=== PATIENT | female | born 1935 | race Asian ===

== ENCOUNTER 2016-12-08 21:17 | Emergency (ER) | payer MEDICARE, OTHER ==
[2016-12-08 21:36] VITALS: BP 175/61
[2016-12-08] MEDS ORDERED: TETANUS/DIPHTHERIA/PERTUSSIS 0.5 ML SYRINGE IM ONE ×2 (21:42→21:47)
--- NOTE | 2016-12-08 21:45 | ED Physician Documentation ---
History of Present Illness - Stated complaint Stated Complaint: R HAND SWOLLEN/PX - Chief complaint Chief Complaint: Needlestick - History obtained from History obtained from: Patient, Family - History of Present Illness Timing: Today Pain level max: 0 Pain level now: 0 Improved by: nothing Worsened by: nothing - Additonal information Additional information: L thumb stick by blow dart. Accidental while cleaning her car. It was her son's dart. Unknown last tetanus. Not on blood thinners. Unknown tetanus Review of Systems Neurologic: denies: Focal weakness, Numbness PD PAST MEDICAL HISTORY - Past Medical History Cardiovascular: Hypertension, High cholesterol Respiratory: None Endocrine/Autoimmune: None GI: GERD, Hepatitis : None HEENT: Other Psych: None Musculoskeletal: None Derm: None - Past Surgical History Past Surgical History: Yes HEENT: Cataracts - Present Medications Home Medications: Ambulatory Orders Medication Instructions Recorded Confirmed Aspirin [Aspir-Low] 81 mg PO DAILY 09/25/15 09/25/15 Cholecalciferol [Vitamin D3] 5,000 unit ORAL DAILY 09/25/15 09/25/15 Hydrochlorothiazide 25 mg PO DAILY 09/25/15 09/25/15 Losartan Potassium 100 mg PO DAILY 09/25/15 09/25/15 Omeprazole [PriLOSEC] 20 mg PO DAILY 09/25/15 09/25/15 Simvastatin 20 mg PO DAILY 09/25/15 09/25/15 - Allergies Allergies/Adverse Reactions: Allergies Allergy/AdvReac Type Severity Reaction Status Date / Time No Known Drug Allergies Allergy Verified 09/25/15 07:20 - Social History Does the pt smoke?: Yes Smoking Status: Current every day smoker Does the pt drink ETOH?: No - Immunizations Immunizations are current?: No Immunizations: TDAP >10years/unknown PD ED PE NORMAL - Vitals Vital signs reviewed: Yes - General General: Alert and oriented X 3, No acute distress - Neck Neck: Supple, no meningeal sign - Cardiac Cardiac: RRR - Respiratory Respiratory: No respiratory distress, Clear bilaterally - Extremities Extremities: Other (L hand - small puncture wound webspace medial aspect of thumb. NVI. no tendon injury) - Neuro Neuro: Alert and oriented X 3 - Psych Psych: Normal mood, Normal affect Results - Vitals Vitals: Vital Signs - 24 hr 12/08/16 21:31 Temperature 36.9 C Heart Rate 67 Respiratory 16 Rate Blood Pressure 175/61 H O2 Saturation 98 Oxygen O2 Source Room air PD MEDICAL DECISION MAKING - ED course Complexity details: considered differential, d/w patient, d/w family ED course: Patient with a puncture wound to the Warnings of infection and instructions on wound care given at bedside. Also counseled on how to minimize scarring. Patient counseled regarding signs and symptoms for which I believe and urgent re -evaluation would be necessary. Patient with good understanding of and agreement to plan and is comfortable going home at this time This document was made in part using voice recognition software. While efforts are made to proofread this document, sound alike and grammatical errors may occur. Departure - Departure Disposition: 01 Home, Self Care Clinical Impression: Needle stick injury Qualifiers: Encounter type: initial encounter Qualified Code(s): W27.3XXA - Contact with needle (sewing), initial encounter Condition: Good Instructions: ED Wound Care Follow-Up: Rafael Jewell MD [Primary Care Provider] - Within 1 week Comments: Return if you worsen or notice redness, swelling, or drainage from the site. These normally heal well. Discharge Date/Time: 12/08/16 22:03
== END 2016-12-08 22:03 | disposition home or self-care (01) ==
LOC: ED 21:17
DX: S61.032A Puncture wound without foreign body of left thumb without damage to nail, initial encounter (principal); W45.8XXA Other foreign body or object entering through skin, initial encounter; Y93.89 Activity, other specified; I10 Essential (primary) hypertension; F17.200 Nicotine dependence, unspecified, uncomplicated; Z79.82 Long term (current) use of aspirin
CPT/HCPCS: 90471; 96372; 99283

== ENCOUNTER 2018-01-17 08:00 | Outpatient (CLI) | payer MEDICARE, OTHER ==
[2018-01-17 13:28] LABS: BASOPHILS # (AUTO) 0.1 10^3/uL (0.0-0.1); BASOPHILS % (AUTO) 1.3 %; EOSINOPHILS # (AUTO) 0.4 10^3/uL (0.0-0.7); EOSINOPHILS % (AUTO) 6.5 %; HGB - HEMOGLOBIN 11.9 g/dL (12.0-16.0); LYMPHOCYTES # (AUTO) 1.9 10^3/uL (1.5-3.5); LYMPHOCYTES % (AUTO) 29.2 %; MEAN CORPUSCULAR HEMOGLOBIN 24.1 pg (27.0-31.0); MEAN CORPUSCULAR HGB CONC 33.1 g/dL (32.0-36.0); MEAN PLATELET VOLUME 7.7 fL (7.9-10.8); MONOCYTES # (AUTO) 0.5 10^3/uL (0.0-1.0); MONOCYTES % (AUTO) 8.1 %; NEUTROPHILS # (AUTO) 3.5 10^3/uL (1.5-6.6); NEUTROPHILS % (AUTO) 54.9 %; PLT - PLATELET COUNT 256 10^3/uL (130-450); RED BLOOD COUNT 4.92 10^6/uL (4.20-5.40); RED CELL DISTRIBUTION WIDTH 14.2 % (12.0-15.0); WHITE BLOOD COUNT 6.4 x10^3/uL (4.8-10.8)
[2018-01-17 14:07] LABS: THYROID STIMULATING HORMONE 1.83 uIU/mL (0.34-5.60)
[2018-01-17 14:10] LABS: FERRITIN 119.7 ng/mL (11.0-306.8)
[2018-01-17 14:14] LABS: % IRON SATURATION 36 % (20-50); ALBUMIN 3.8 g/dL (3.2-5.5); ALBUMIN/GLOBULIN RATIO 1.1 (1.0-2.2); ALKALINE PHOSPHATASE 91 IU/L (42-121); ALT ALANINE AMINOTRANSFERASE 11 IU/L (10-60); AST ASPARTATE AMINOTRANSFERASE 21 IU/L (10-42); BILIRUBIN,TOTAL 1.3 mg/dL (0.2-1.0); BUN - BLOOD UREA NITROGEN 20 mg/dL (6-20); CALCIUM 9.4 mg/dL (8.5-10.3); CARBON DIOXIDE - CO2 27 mmol/L (21-32); CHLORIDE 103 mmol/L (101-111); CHOL/HDL RATIO 3.8 (<4.4); CHOLESTEROL 248 mg/dL; CREATININE 1.2 mg/dL (0.4-1.0); GFR - MDRD 43 (>89); GLUCOSE 100 mg/dL (70-100); HDL CHOLESTEROL 65 mg/dL; IRON 115 ug/dL (28-170); LDL CHOLESTEROL,CALCULATED 143 mg/dL; LDL/HDL RATIO 2.2 (<4.4); SODIUM 139 mmol/L (135-145); TOTAL IRON BINDING CAPACITY 316 ug/dL (250-450); TOTAL PROTEIN 7.2 g/dL (6.7-8.2); TRANSFERRIN 226 mg/dL (192-382); VLDL CHOLESTEROL 40 mg/dL
== END 2018-01-17 08:01 | disposition home or self-care (01) ==
LOC: LAB.WCP 08:00
PROVIDERS: ATTEND Family Medicine
DX: D64.9 Anemia, unspecified (principal); E78.5 Hyperlipidemia, unspecified; J44.9 Chronic obstructive pulmonary disease, unspecified; R16.0 Hepatomegaly, not elsewhere classified; E87.6 Hypokalemia; I10 Essential (primary) hypertension; R73.02 Impaired glucose tolerance (oral)
CPT/HCPCS: 36415; 80053; 80061; 82728; 83540; 83721; 84443; 84466; 85025

== ENCOUNTER 2018-05-11 08:00 | Outpatient (CLI) | payer MEDICARE, OTHER ==
[2018-05-11 19:29] LABS: BASOPHILS # (AUTO) 0.1 10^3/uL (0.0-0.1); BASOPHILS % (AUTO) 1.4 %; EOSINOPHILS # (AUTO) 0.4 10^3/uL (0.0-0.7); EOSINOPHILS % (AUTO) 7.7 %; HGB - HEMOGLOBIN 11.8 g/dL (12.0-16.0); LYMPHOCYTES # (AUTO) 1.5 10^3/uL (1.5-3.5); LYMPHOCYTES % (AUTO) 27.2 %; MEAN CORPUSCULAR HEMOGLOBIN 24.8 pg (27.0-31.0); MEAN CORPUSCULAR HGB CONC 32.9 g/dL (32.0-36.0); MEAN CORPUSCULAR VOLUME 75.5 fL (81.0-99.0); MEAN PLATELET VOLUME 7.4 fL (7.9-10.8); MONOCYTES # (AUTO) 0.5 10^3/uL (0.0-1.0); MONOCYTES % (AUTO) 8.6 %; NEUTROPHILS # (AUTO) 3.1 10^3/uL (1.5-6.6); NEUTROPHILS % (AUTO) 55.1 %; PLT - PLATELET COUNT 324 10^3/uL (130-450); RED BLOOD COUNT 4.74 10^6/uL (4.20-5.40); RED CELL DISTRIBUTION WIDTH 14.2 % (12.0-15.0); WHITE BLOOD COUNT 5.7 x10^3/uL (4.8-10.8)
[2018-05-11 19:32] LABS: ALBUMIN 3.9 g/dL (3.2-5.5); ALBUMIN/GLOBULIN RATIO 1.1 (1.0-2.2); ALKALINE PHOSPHATASE 101 IU/L (42-121); ALT ALANINE AMINOTRANSFERASE 13 IU/L (10-60); AMYLASE 96 U/L (28-100); AST ASPARTATE AMINOTRANSFERASE 23 IU/L (10-42); BILIRUBIN,TOTAL 0.9 mg/dL (0.2-1.0); BUN - BLOOD UREA NITROGEN 22 mg/dL (6-20); CALCIUM 9.5 mg/dL (8.5-10.3); CARBON DIOXIDE - CO2 28 mmol/L (21-32); CHLORIDE 104 mmol/L (101-111); CREATININE 1.3 mg/dL (0.4-1.0); GFR - MDRD 39 (>89); GLUCOSE 89 mg/dL (70-100); LIPASE 36 U/L (22-51); SODIUM 140 mmol/L (135-145); TOTAL PROTEIN 7.5 g/dL (6.7-8.2)
== END 2018-05-11 23:59 | disposition home or self-care (01) ==
LOC: LAB.WCP 08:00
PROVIDERS: ATTEND Family Medicine
DX: D64.9 Anemia, unspecified (principal); R42 Dizziness and giddiness; R10.13 Epigastric pain
CPT/HCPCS: 36415; 80053; 82150; 83690; 84443; 85025

== ENCOUNTER 2020-01-07 14:03 | Outpatient (CLI) | payer MEDICARE, OTHER ==
[2020-01-07 18:14] LABS: CALCIUM 8.9 mg/dL (8.5-10.3); CREATININE 0.9 mg/dL (0.4-1.0)
== END 2020-01-07 23:59 | disposition home or self-care (01) ==
LOC: LAB.WCP 14:03
PROVIDERS: ATTEND Family Medicine
DX: I10 Essential (primary) hypertension (principal)
CPT/HCPCS: 36415; 80048

== ENCOUNTER 2020-06-18 11:39 | Outpatient (CLI) | payer MEDICARE, OTHER | END 2020-06-18 23:59 | disposition home or self-care (01) | LOC: LAB.WCP 11:39 | PROVIDERS: ATTEND Family Medicine | DX: D50.9 Iron deficiency anemia, unspecified (principal) | CPT/HCPCS: 82274 ==

== ENCOUNTER 2020-07-27 15:27 | Outpatient (CLI) | payer MEDICARE, OTHER | END 2020-07-27 15:28 | disposition critical access hospital (66) | LOC: EMS 15:27 | PROVIDERS: ATTEND Emergency Medicine | DX: R42 Dizziness and giddiness (principal) | CPT/HCPCS: A0425; A0429 ==

== ENCOUNTER 2020-07-27 15:53 | Emergency (ER) | payer MEDICARE, OTHER ==
--- NOTE | 2020-07-27 16:51 | ED Physician Documentation ---
History of Present Illness - Stated complaint Stated Complaint: DIZZY - Chief complaint Chief Complaint: Neuro - History obtained from History obtained from: Patient, EMS - History of Present Illness Timing: Today Pain level max: 0 Pain level now: 0 - Additonal information Additional information: 84-year-old female brought in by ambulance for dizziness today. Nausea. No vomiting. History of a brain aneurysm with repair at [facility] in April 2020. Was seen last week at [facility] in [place] for hypertension. No recurrent trauma. Worse with movement, better with rest. Patient states her medications have not changed, though she is a poor historian. Review of Systems Ten Systems: 10 systems reviewed and negative Constitutional: denies: Fever, Chills Ears: denies: Ear pain Nose: denies: Rhinorrhea / runny nose, Congestion Respiratory: denies: Cough GI: reports: Nausea, Vomiting. denies: Diarrhea : denies: Dysuria, Frequency, Hesitancy Skin: denies: Rash Musculoskeletal: denies: Neck pain, Back pain Neurologic: denies: Focal weakness, Numbness, Headache PD PAST MEDICAL HISTORY - Past Medical History Cardiovascular: Hypertension, High cholesterol Respiratory: None Endocrine/Autoimmune: None GI: GERD, Hepatitis : None HEENT: Other Psych: None Musculoskeletal: None Derm: None - Past Surgical History Past Surgical History: Yes HEENT: Cataracts - Present Medications Home Medications: Ambulatory Orders Medication Instructions Recorded Confirmed Hydrochlorothiazide 25 mg PO DAILY 09/25/15 07/27/20 Losartan Potassium 100 mg PO DAILY 09/25/15 07/27/20 Meclizine HCl [Antivert] 12.5 - 25 mg PO Q6H PRN #30 tab 07/27/20 Metoprolol Tartrate [Lopressor] 1 tab PO DAILY 07/27/20 07/27/20 - Allergies Allergies/Adverse Reactions: Allergies Allergy/AdvReac Type Severity Reaction Status Date / Time No Known Drug Allergies Allergy Verified 07/27/20 16:15 - Social History Does the pt smoke?: Yes Smoking Status: Current every day smoker Does the pt drink ETOH?: No - Immunizations Immunizations are current?: No Immunizations: TDAP >10years/unknown PD ED PE NORMAL - Vitals Vital signs reviewed: Yes - General General: No acute distress, Other (alert, oriented to person and place. not to time.) - HEENT HEENT: PERRL, EOMI, Moist mucous membranes, Other (no nystagmus) - Neck Neck: Supple, no meningeal sign - Cardiac Cardiac: RRR, Strong equal pulses - Respiratory Respiratory: No respiratory distress, Clear bilaterally - Abdomen Abdomen: Soft, Non tender, Non distended - Derm Derm: Warm and dry - Extremities Extremities: No edema - Neuro Neuro: No motor deficit, No sensory deficit, Normal speech Eye Opening: Spontaneous Motor: Obeys Commands Verbal: Confused GCS Score: 14 - Psych Psych: Normal mood, Normal affect Results - Vitals Vitals: Vital Signs - 24 hr 07/27/20 07/27/20 07/27/20 15:55 16:32 17:07 Temperature 36.9 C 36.3 C L Heart Rate 64 61 64 Respiratory 17 14 15 Rate Blood Pressure 112/80 151/65 H 173/60 H O2 Saturation 99 99 100 07/27/20 07/27/20 07/27/20 17:30 18:00 18:30 Temperature Heart Rate 64 62 69 Respiratory 15 15 21 Rate Blood Pressure 155/65 H 155/67 H 162/65 H O2 Saturation 100 100 100 07/27/20 19:31 Temperature Heart Rate 61 Respiratory 13 Rate Blood Pressure 166/61 H O2 Saturation 100 Oxygen O2 Source Room air - EKG (time done) 1558 Rate: Rate (enter#) (66) Rhythm: NSR [place]: Normal Intervals: Normal ID QRS: Normal Ischemia: Normal ST segments - Labs Labs: Laboratory Tests 07/27/20 07/27/20 07/27/20 17:12 17:12 17:19 WBC 5.6 RBC 4.11 L Hgb 10.2 L Hct 32.7 L MCV 79.6 L MCH 24.8 L MCHC 31.2 L RDW 13.6 Plt Count 268 MPV 8.6 Neut # (Auto) 4.1 Lymph # (Auto) 0.9 L [place] # (Auto) 0.4 Eos # (Auto) 0.2 Baso # (Auto) 0.1 Absolute Nucleated RBC 0.00 Nucleated RBC % 0.0 Sodium 140 Potassium 3.5 Chloride 102 Carbon Dioxide 26 Anion Gap 12.0 BUN 26 H Creatinine 1.1 H Estimated GFR (MDRD) 48 L Glucose 113 H Calcium 9.1 Total Bilirubin 0.6 AST 22 ALT 18 Alkaline Phosphatase 123 H Total Protein 7.1 Albumin 3.8 Globulin 3.3 Albumin/Globulin Ratio 1.2 Urine Color YELLOW Urine Clarity CLEAR Urine pH 6.0 Ur Specific [place] 1.020 Urine Protein NEGATIVE Urine Glucose (UA) NEGATIVE Urine Ketones NEGATIVE Urine Occult Blood TRACE-INTA Urine Nitrite NEGATIVE Urine Bilirubin NEGATIVE Urine Urobilinogen 0.2 (NORMAL) Ur Leukocyte Esterase NEGATIVE Ur Microscopic Review NOT INDICATED Urine Culture Comments NOT INDICATED - Rads (name of study) head CT Radiology: Prelim report reviewed, EMP read contemporaneously, See rad report (postoperative changes, no acute findings.) PD MEDICAL DECISION MAKING - ED course Complexity details: reviewed results, re-evaluated patient, considered differential, d/w patient ED course: Patient with vertiginous symptoms today. No acute findings on head CT or laboratory testing. Symptoms resolved with IV fluids and a dose of meclizine. Ambulating without any difficulty. No focal neurological deficits. No headaches. No rebleed. Patient counseled regarding signs and symptoms for which I believe and urgent re-evaluation would be necessary. Patient with good understanding of and agreement to plan and is comfortable going home at this time This document was made in part using voice recognition software. While efforts are made to proofread this document, sound alike and grammatical errors may occur. Departure - Departure Disposition: 01 Home, Self Care Clinical Impression: Vertigo Condition: Good Instructions: ED Vertigo Unspecified Follow-Up: your,doctor in 1 week [Other] Prescriptions: Meclizine HCl [Antivert] 12.5 - 25 mg PO Q6H PRN #30 tab PRN Reason: Vertigo Comments: Your head CT and laboratory testing did not show any acute abnormalities today. Follow-up with your doctor for further care. Return if you worsen. Discharge Date/Time: 07/27/20 19:35 NIHSS - Time Time: 16:30 - Level of Consciousness Level of consciousness: (0) Alert, Keenly responsive LOC Questions: (0) Answers both Q's correct LOC Commands: (0) Performs both correctly - Gaze Best Gaze: (0) Normal - Visual Visual: (0) No loss - Facial Palsy Facial Palsy: (0) Normal, symmetrical movement - Motor Arms (both separate) Motor Arm (right): (0) No drift Motor Arm (left): (0) No drift - Motor Legs (both separate) Motor Leg (right): (0) No drift Motor Leg (left): (0) No drift - Limb Ataxia Limb Ataxia: (0) Absent - Sensory Sensory: (0) Normal - Best Language Best Language: (0) No aphasia - Dysarthria Dysarthria: (0) Normal - Extinction and Inattention (formally neg Extinction and inattention: (0) No abnormality - Total Score/Results Total Score/Result: 0
--- NOTE | 2020-07-27 17:01 | CT Report ---
PROCEDURE: HEAD WO INDICATIONS: vertigo, history of head bleed TECHNIQUE: Noncontrast 4.5 mm thick angled axial sections acquired from the foramen magnum to the vertex. For r adiation dose reduction, the following was used: automated exposure control, adjustment of mA and/or kV according to patient size. COMPARISON: None. FINDINGS: Image quality: Excellent. The ventricular system and cortical sulci demonstrate atrophy, consistent for patient's stated age. There are areas of hypodensity in the periventricular and subcortical white matter. A small linear ar ea of hyperdensity within the extra-axial space of the left frontal lobe. Adjacent area is a low-atte nuation is also present. Motion is present within this region, limiting fine detail evaluation. No ac nino hemorrhage, mass lesion or midline shift. Brainstem is unremarkable. Globes are symmetrical. Sinuses are aerated. Osseous structures are intact. IMPRESSION: 1. Linear hyperdensity within the left extra-axial space, with adjacent isoattenuation as above. Ther e is motion artifact within this region as well as artifact from surgical hardware of left frontal te mporal craniotomy. Appearance is suspected to be postsurgical related to recent surgery, artifact and prior bleed. However, this is contingent on appropriate surgical timeline. Otherwise, a small focus of new hemorrhage cannot be definitively excluded. Recommend correlation to patient history and 6 hector r interval imaging follow-up as appropriate to document stability. Reviewed by: Celine Johnson MD on 07/27/2020 5:00 PM PST Approved by: Celine Johnson MD on 07/27/2020 5:00 PM [facility] Station ID: [id number]
[2020-07-27 17:18] LABS: BASOPHILS # (AUTO) 0.1 10^3/uL (0.0-0.1); BASOPHILS % (AUTO) 0.9 %; EOSINOPHILS # (AUTO) 0.2 10^3/uL (0.0-0.7); EOSINOPHILS % (AUTO) 3.4 %; HGB - HEMOGLOBIN 10.2 g/dL (12.0-16.0); LYMPHOCYTES # (AUTO) 0.9 10^3/uL (1.5-3.5); LYMPHOCYTES % (AUTO) 16.5 %; MEAN CORPUSCULAR HEMOGLOBIN 24.8 pg (27.0-31.0); MEAN CORPUSCULAR HGB CONC 31.2 g/dL (32.0-36.0); MEAN CORPUSCULAR VOLUME 79.6 fL (81.0-99.0); MEAN PLATELET VOLUME 8.6 fL (7.9-10.8); MONOCYTES # (AUTO) 0.4 10^3/uL (0.0-1.0); MONOCYTES % (AUTO) 6.3 %; NEUTROPHILS # (AUTO) 4.1 10^3/uL (1.5-6.6); NEUTROPHILS % (AUTO) 72.7 %; PLT - PLATELET COUNT 268 10^3/uL (130-450); RED BLOOD COUNT 4.11 10^6/uL (4.20-5.40); RED CELL DISTRIBUTION WIDTH 13.6 % (12.0-15.0); WHITE BLOOD COUNT 5.6 x10^3/uL (4.8-10.8)
[2020-07-27 17:31] LABS: ALBUMIN 3.8 g/dL (3.2-5.5); ALBUMIN/GLOBULIN RATIO 1.2 (1.0-2.2); BILIRUBIN,TOTAL 0.6 mg/dL (0.2-1.0); CALCIUM 9.1 mg/dL (8.5-10.3); CREATININE 1.1 mg/dL (0.4-1.0); TOTAL PROTEIN 7.1 g/dL (6.7-8.2)
[2020-07-27 17:35] LABS: BILIRUBIN,URINE NEGATIVE (NEGATIVE); GLUCOSE, URINE (UA) NEGATIVE (NEGATIVE); KETONES,URINE (UA) NEGATIVE (NEGATIVE); LEUKOCYTE ESTERASE, URINE NEGATIVE (NEGATIVE); NITRITE,URINE NEGATIVE (NEGATIVE); OCCULT BLOOD,URINE TRACE-INTA (NEGATIVE); PROTEIN,URINE NEGATIVE (NEGATIVE); UROBILINOGEN,URINE 0.2 (NORMAL) E.U./dL (NORMAL)
[2020-07-27 17:40] LABS: CLARITY,URINE CLEAR (CLEAR)
[2020-07-27 19:31] VITALS: BP 166/61
== END 2020-07-27 19:35 | disposition home or self-care (01) ==
LOC: EDUNIT# → ED 15:53
DX: R42 Dizziness and giddiness (principal); R11.0 Nausea; Z98.890 Other specified postprocedural states; I10 Essential (primary) hypertension; F17.200 Nicotine dependence, unspecified, uncomplicated
CPT/HCPCS: 36415; 80053; 81001; 81003; 85025; 87086; 93005; 99284

== ENCOUNTER 2020-11-16 10:09 | Outpatient (CLI) | payer MEDICARE, OTHER ==
[2020-11-16 12:24] LABS: BASOPHILS % (AUTO) 0.6 %; EOSINOPHILS # (AUTO) 0.3 10^3/uL (0.0-0.7); EOSINOPHILS % (AUTO) 5.3 %; HCT - HEMATOCRIT 38.2 % (37.0-47.0); HGB - HEMOGLOBIN 11.6 g/dL (12.0-16.0); LYMPHOCYTES # (AUTO) 1.3 10^3/uL (1.5-3.5); LYMPHOCYTES % (AUTO) 20.5 %; MEAN CORPUSCULAR HEMOGLOBIN 23.3 pg (27.0-31.0); MEAN CORPUSCULAR HGB CONC 30.4 g/dL (32.0-36.0); MEAN CORPUSCULAR VOLUME 76.9 fL (81.0-99.0); MEAN PLATELET VOLUME 9.3 fL (7.9-10.8); MONOCYTES # (AUTO) 0.7 10^3/uL (0.0-1.0); MONOCYTES % (AUTO) 10.5 %; NEUTROPHILS # (AUTO) 3.9 10^3/uL (1.5-6.6); NEUTROPHILS % (AUTO) 62.6 %; PLT - PLATELET COUNT 260 10^3/uL (130-450); RED BLOOD COUNT 4.97 10^6/uL (4.20-5.40); RED CELL DISTRIBUTION WIDTH 16.2 % (12.0-15.0); WHITE BLOOD COUNT 6.2 x10^3/uL (4.8-10.8)
[2020-11-16 13:23] LABS: % IRON SATURATION 24 % (20-50); ALBUMIN 3.9 g/dL (3.2-5.5); ALBUMIN/GLOBULIN RATIO 1.2 (1.0-2.2); ALKALINE PHOSPHATASE 127 IU/L (42-121); ALT ALANINE AMINOTRANSFERASE 29 IU/L (10-60); AST ASPARTATE AMINOTRANSFERASE 24 IU/L (10-42); BILIRUBIN,TOTAL 1.7 mg/dL (0.2-1.0); BUN - BLOOD UREA NITROGEN 21 mg/dL (6-20); CALCIUM 9.2 mg/dL (8.5-10.3); CARBON DIOXIDE - CO2 26 mmol/L (21-32); CHLORIDE 105 mmol/L (101-111); CHOLESTEROL 318 mg/dL; CREATININE 1.1 mg/dL (0.4-1.0); GFR - MDRD 47 (>89); GLUCOSE 105 mg/dL (70-100); HDL CHOLESTEROL 127 mg/dL; IRON 109 ug/dL (28-170); POTASSIUM 4.3 mmol/L (3.5-5.0); SODIUM 141 mmol/L (135-145); TOTAL IRON BINDING CAPACITY 448 ug/dL (250-450); TOTAL PROTEIN 7.2 g/dL (6.7-8.2); TRANSFERRIN 320 mg/dL (192-382); TRIGLYCERIDES 75 mg/dL; VLDL CHOLESTEROL 15 mg/dL
[2020-11-16 13:24] LABS: CHOL/HDL RATIO 2.5 (<4.4); LDL CHOLESTEROL,CALCULATED 176 mg/dL; LDL/HDL RATIO 1.4 (<4.4)
[2020-11-16 13:41] LABS: FERRITIN 44.4 ng/mL (11.0-306.8)
[2020-11-16 13:53] LABS: ESTIMATED AVERAGE GLUCOSE 117 mg/dL (70-100); HEMOGLOBIN A1c% 5.7 % (4.27-6.07)
== END 2020-11-16 23:59 | disposition home or self-care (01) ==
LOC: LAB.WCP 10:09
PROVIDERS: ATTEND Family Medicine
DX: D50.9 Iron deficiency anemia, unspecified (principal); E78.5 Hyperlipidemia, unspecified; R73.02 Impaired glucose tolerance (oral)
CPT/HCPCS: 36415; 80053; 80061; 82607; 82728; 83036; 83540; 83721; 84466; 85025

== ENCOUNTER 2021-05-25 10:17 | Outpatient (CLI) | payer MEDICARE, OTHER ==
[2021-05-25 18:13] LABS: BASOPHILS # (AUTO) 0.1 10^3/uL (0.0-0.1); BASOPHILS % (AUTO) 1.5 %; EOSINOPHILS # (AUTO) 0.4 10^3/uL (0.0-0.7); EOSINOPHILS % (AUTO) 6.9 %; HCT - HEMATOCRIT 41.5 % (37.0-47.0); HGB - HEMOGLOBIN 12.8 g/dL (12.0-16.0); LYMPHOCYTES # (AUTO) 1.7 10^3/uL (1.5-3.5); LYMPHOCYTES % (AUTO) 28.1 %; MEAN CORPUSCULAR HGB CONC 30.8 g/dL (32.0-36.0); MEAN CORPUSCULAR VOLUME 77.9 fL (81.0-99.0); MEAN PLATELET VOLUME 9.7 fL (7.9-10.8); MONOCYTES # (AUTO) 0.5 10^3/uL (0.0-1.0); MONOCYTES % (AUTO) 9.1 %; NEUTROPHILS # (AUTO) 3.2 10^3/uL (1.5-6.6); NEUTROPHILS % (AUTO) 54.1 %; PLT - PLATELET COUNT 289 10^3/uL (130-450); RED BLOOD COUNT 5.33 10^6/uL (4.20-5.40); RED CELL DISTRIBUTION WIDTH 14.4 % (12.0-15.0); WHITE BLOOD COUNT 5.9 x10^3/uL (4.8-10.8)
[2021-05-25 18:47] LABS: ALBUMIN 4.1 g/dL (3.2-5.5); ALBUMIN/GLOBULIN RATIO 1.3 (1.0-2.2); BILIRUBIN,TOTAL 1.8 mg/dL (0.2-1.0); CALCIUM 9.6 mg/dL (8.5-10.3); CREATININE 1.2 mg/dL (0.4-1.0); TOTAL PROTEIN 7.3 g/dL (6.7-8.2)
[2021-05-25 21:25] LABS: ESTIMATED AVERAGE GLUCOSE 128 mg/dL (70-100); HEMOGLOBIN A1c% 6.1 % (4.27-6.07)
== END 2021-05-25 23:59 | disposition home or self-care (01) ==
LOC: LAB.WCP 10:17
PROVIDERS: ATTEND Family Medicine
DX: I10 Essential (primary) hypertension (principal); D50.9 Iron deficiency anemia, unspecified; R73.02 Impaired glucose tolerance (oral)
CPT/HCPCS: 36415; 80053; 82728; 83036; 83540; 84466; 85025

== ENCOUNTER 2021-08-17 14:35 | Outpatient (CLI) | payer MEDICARE, OTHER | END 2021-08-17 14:36 | disposition short-term general hospital (02) | LOC: EMS 14:35 | DX: R42 Dizziness and giddiness (principal); R53.1 Weakness; R39.89 Other symptoms and signs involving the genitourinary system | CPT/HCPCS: A0425; A0427 ==

== ENCOUNTER 2021-08-20 15:10 | Outpatient (CLI) | payer MEDICARE, OTHER ==
[2021-08-20 17:51] LABS: BASOPHILS # (AUTO) 0.1 10^3/uL (0.0-0.1); BASOPHILS % (AUTO) 0.7 %; EOSINOPHILS # (AUTO) 0.4 10^3/uL (0.0-0.7); EOSINOPHILS % (AUTO) 4.9 %; HCT - HEMATOCRIT 36.1 % (37.0-47.0); HGB - HEMOGLOBIN 11.4 g/dL (12.0-16.0); LYMPHOCYTES # (AUTO) 1.9 10^3/uL (1.5-3.5); LYMPHOCYTES % (AUTO) 24.6 %; MEAN CORPUSCULAR HEMOGLOBIN 23.5 pg (27.0-31.0); MEAN CORPUSCULAR HGB CONC 31.6 g/dL (32.0-36.0); MEAN CORPUSCULAR VOLUME 74.4 fL (81.0-99.0); MONOCYTES # (AUTO) 0.6 10^3/uL (0.0-1.0); MONOCYTES % (AUTO) 8.5 %; NEUTROPHILS # (AUTO) 4.6 10^3/uL (1.5-6.6); PLT - PLATELET COUNT 279 10^3/uL (130-450); RED BLOOD COUNT 4.85 10^6/uL (4.20-5.40); RED CELL DISTRIBUTION WIDTH 15.4 % (12.0-15.0); WHITE BLOOD COUNT 7.6 x10^3/uL (4.8-10.8)
[2021-08-20 18:19] LABS: ALBUMIN 4.3 g/dL (3.2-5.5); ALBUMIN/GLOBULIN RATIO 1.3 (1.0-2.2); CALCIUM 9.3 mg/dL (8.5-10.3); CREATININE 1.1 mg/dL (0.4-1.0); POTASSIUM 4.2 mmol/L (3.5-5.0); TOTAL PROTEIN 7.5 g/dL (6.7-8.2)
== END 2021-08-20 15:11 | disposition home or self-care (01) ==
LOC: LAB.N 15:10
PROVIDERS: ATTEND Physician Assistant Medical
DX: I10 Essential (primary) hypertension (principal); D50.9 Iron deficiency anemia, unspecified
CPT/HCPCS: 36415; 80053; 82728; 83540; 84466; 85025

== ENCOUNTER 2023-06-02 13:30 | Outpatient (CLI) | payer MEDICARE, OTHER | END 2023-06-02 13:31 | disposition home or self-care (01) | LOC: LAB.N 13:30 | PROVIDERS: ATTEND Obstetrics & Gynecology | DX: N83.209 Unspecified ovarian cyst, unspecified side (principal) | CPT/HCPCS: 36415; 86304 ==

== ENCOUNTER 2023-09-21 11:35 | Outpatient (CLI) | payer MEDICARE, OTHER ==
--- NOTE | 2023-09-21 14:09 | XRAY Report ---
PROCEDURE: Chest 2V INDICATIONS: COMMUNITY ACQUIRED PNEUMONIA TECHNIQUE: 2 views of the chest were acquired. COMPARISON: CT 02/02/2022 FINDINGS: Surgical changes and devices: None. Lungs and pleura: Stable biapical scarring. New patchy left basilar airspace opacity. Mediastinum: Mediastinal contours appear normal. Heart size is normal. Bones and chest wall: No suspicious bony lesions. Overlying soft tissues appear unremarkable. IMPRESSION: New, patchy left basilar airspace opacity, concerning for infection. Recommend follow-up x-ray in 1-2 months to ensure resolution. Stable biapical scarring. Reviewed by: Kong Benavides MD on 09/21/2023 2:07 PM PDT Approved by: Kong Benavides MD on 09/21/2023 2:07 PM PDT Station ID: [id number]
== END 2023-09-21 11:36 | disposition home or self-care (01) ==
LOC: DI.N 11:35
PROVIDERS: ATTEND Registered Nurse
DX: J18.9 Pneumonia, unspecified organism (principal)

== ENCOUNTER 2023-09-26 13:00 | Emergency (ER) | payer MEDICARE, OTHER ==
--- NOTE | 2023-09-26 13:37 | XRAY Report ---
PROCEDURE: Chest 1V INDICATIONS: SOA TECHNIQUE: One view of the chest was acquired. COMPARISON: Chest radiograph on September 21, 2023. CT chest dated February 02, 2022. FINDINGS: Surgical changes and devices: None. Lungs and pleura: No pleural effusions or pneumothorax. Similar appearance of left basilar patchy co nsolidation. No new lung abnormality compared to prior chest radiograph dated September 21, 2023. Redemon stration of subtle bilateral upper lobe reticulonodular opacities as seen on CT chest dated January. Mediastinum: Mediastinal contours appear normal. Heart size is normal. Bones and chest wall: No suspicious bony lesions. Overlying soft tissues appear unremarkable. IMPRESSION: 1.Similar appearance of left basilar patchy consolidation suggestive of aspiration and/or infection. No new lung abnormality compared to prior chest radiograph dated September 21, 2023. 2.Redemonstration of subtle bilateral upper lobe reticulonodular opacities as seen on CT chest dated February 02, 2022 which may reflect interstitial lung disease such as sarcoidosis. Superimposed infecti on is not excluded. Reviewed by: Dimitri Gomez MD on 09/26/2023 1:35 PM PDT Approved by: Dimitri Gomez MD on 09/26/2023 1:35 PM PDT Station ID: [id number]
[2023-09-26 13:56] LABS: BASOPHILS # (AUTO) 0.1 10^3/uL (0.0-0.1); BASOPHILS % (AUTO) 0.8 %; EOSINOPHILS # (AUTO) 0.2 10^3/uL (0.0-0.7); EOSINOPHILS % (AUTO) 2.9 %; HCT - HEMATOCRIT 41.5 % (37.0-47.0); HGB - HEMOGLOBIN 12.6 g/dL (12.0-16.0); LYMPHOCYTES % (AUTO) 13.8 %; MEAN CORPUSCULAR HEMOGLOBIN 23.5 pg (27.0-31.0); MEAN CORPUSCULAR HGB CONC 30.4 g/dL (32.0-36.0); MEAN CORPUSCULAR VOLUME 77.3 fL (81.0-99.0); MEAN PLATELET VOLUME 8.5 fL (7.9-10.8); MONOCYTES # (AUTO) 0.6 10^3/uL (0.0-1.0); MONOCYTES % (AUTO) 8.3 %; NEUTROPHILS # (AUTO) 5.3 10^3/uL (1.5-6.6); NEUTROPHILS % (AUTO) 73.4 %; PLT - PLATELET COUNT 454 10^3/uL (130-450); RED BLOOD COUNT 5.37 10^6/uL (4.20-5.40); RED CELL DISTRIBUTION WIDTH 15.4 % (12.0-15.0); WHITE BLOOD COUNT 7.3 x10^3/uL (4.8-10.8)
[2023-09-26 14:12] LABS: ALBUMIN 3.7 g/dL (3.2-5.5); BILIRUBIN,TOTAL 0.7 mg/dL (0.2-1.0); CALCIUM 9.7 mg/dL (8.5-10.3); CREATININE 1.2 mg/dL (0.6-1.3); POTASSIUM 4.2 mmol/L (3.5-4.5); TOTAL PROTEIN 7.5 g/dL (6.4-8.9)
[2023-09-26] MEDS ORDERED: iohexoL-300 100 ML VIAL ONE (14:33)
--- NOTE | 2023-09-26 14:33 | ED Physician Documentation ---
PD HPI DYSPNEA - Stated complaint Stated Complaint: SOA/DIZZY - Chief complaint Chief Complaint: Resp - Additional information Additional information: 88-year-old female with dementia presents emergency department with her for concerns of pneumonia, not getting any better. Very difficult gathering history and physical from patient as well as her . When I ask her what brings her and she is unable to answer the question. When I asked the what brings her in he just simply says she is not getting better. She was prescribed antibiotics from the walk-in clinic she is unable to tell me and he is unable to tell me what antibiotic she was prescribed he says they looked like they were little blue pills when I ask who has been giving her the medications he says she takes them herself. I ask the even with her dementia she is still able to properly take the oral antibiotics and the says yes I think so and shrugs his shoulders. Patient sounds wheezy being raspy she is satting well on room air but unsure if patient has been properly taking prescribed antibiotics for her pneumonia and if she is properly able to do so I am unsure if 's been helping much if at all. Patient's also reports that she just recently got back from the [facility] in September has been is unsure and unable to give me the date when she returned. She traveled there with her son. PD PAST MEDICAL HISTORY - Past Medical History Past Medical History: Yes Cardiovascular: Hypertension, High cholesterol Respiratory: None Neuro: Other Endocrine/Autoimmune: None GI: GERD, Hepatitis : None HEENT: Other Psych: None Musculoskeletal: None Derm: None - Past Surgical History Past Surgical History: Yes HEENT: Cataracts - Present Medications Home Medications: Ambulatory Orders Medication Instructions Recorded Confirmed Losartan Potassium 100 mg PO DAILY 09/25/15 07/27/20 hydroCHLOROthiazide 25 mg PO DAILY 09/25/15 07/27/20 [Hydrochlorothiazide] Meclizine HCl [Antivert] 12.5 - 25 mg PO Q6H PRN #30 tab 07/27/20 Metoprolol Tartrate [Lopressor] 1 tab PO DAILY 07/27/20 07/27/20 - Allergies Allergies/Adverse Reactions: Allergies Allergy/AdvReac Type Severity Reaction Status Date / Time shellfish derived Allergy Anaphylaxis Verified 09/26/23 13:09 - Social History Does the pt smoke?: Yes Smoking Status: Current every day smoker Does the pt drink ETOH?: No Does the pt have substance abuse?: No - Immunizations Immunizations are current?: No Immunizations: TDAP >10years/unknown PD ED PE NORMAL - Vitals Vital signs reviewed: Yes - General General: No acute distress, Well developed/nourished - HEENT HEENT: Atraumatic, PERRL, EOMI - Neck Neck: Supple, no meningeal sign - Cardiac Cardiac: RRR, No gallop, Strong equal pulses - Respiratory Respiratory: No respiratory distress, Other (bilateral ronchi) - Abdomen Abdomen: Normal bowel sounds, Soft, Non tender - Rectal Rectal: Deferred - Back Back: No CVA TTP - Derm Derm: Normal color, Warm and dry, No rash - Extremities Extremities: No deformity Results - Vitals Vitals: Vital Signs - 24 hr 09/26/23 09/26/23 09/26/23 13:03 15:09 16:15 Temperature 36.2 C L Heart Rate 90 82 72 Respiratory 20 16 16 Rate Blood Pressure 163/70 H 138/84 H 142/84 H O2 Saturation 99 98 98 Oxygen O2 Source Room air - EKG (time done) 1416 EKG releavant findings:: EKG personally interpreted by author of this note. Relevant findings are: Rate: Rate (enter#) (65) Rhythm: NSR [place]: Normal Intervals: Normal MT QRS: LVH Ischemia: Normal ST segments Computer interpretation: Agree with computer - Labs Labs: Laboratory Tests 09/26/23 09/26/23 09/26/23 13:46 13:46 13:46 WBC 7.3 RBC 5.37 Hgb 12.6 Hct 41.5 MCV 77.3 L MCH 23.5 L MCHC 30.4 L RDW 15.4 H Plt Count 454 H MPV 8.5 Neut # (Auto) 5.3 Lymph # (Auto) 1.0 L [place] # (Auto) 0.6 Eos # (Auto) 0.2 Baso # (Auto) 0.1 Absolute Nucleated RBC 0.00 Nucleated RBC % 0.0 Sodium 137 Potassium 4.2 Chloride 100 L Carbon Dioxide 31 Anion Gap 6.0 BUN 13 Creatinine 1.2 Estimated GFR (MDRD) 43 L Glucose 120 H Calcium 9.7 Total Bilirubin 0.7 AST 18 ALT 20 Alkaline Phosphatase 100 B-Natriuretic Peptide 20 Total Protein 7.5 Albumin 3.7 Globulin 3.8 Albumin/Globulin Ratio 1.0 Lipase 28 Nasal Adenovirus (PCR) Nasal B. parapertussis DNA (PCR) Nasal Coronavir 229E PCR Nasal Coronavir HKU1 PCR Nasal Coronavir NL63 PCR Nasal Coronavir OC43 PCR Nasal Enterovir/Rhinovir PCR Nasal Influenza B PCR Nasal Influenza A PCR Nasal Parainfluen 1 PCR Nasal Parainfluen 2 PCR Nasal Parainfluen 3 PCR Nasal Parainfluen 4 PCR Nasal RSV (PCR) Nasal B.pertussis DNA PCR Nasal C.pneumoniae (PCR) Lex Human Metapneumo PCR Nasal M.pneumoniae (PCR) Nasal SARS-CoV-2 (PCR) 09/26/23 14:19 WBC RBC Hgb Hct MCV MCH MCHC RDW Plt Count MPV Neut # (Auto) Lymph # (Auto) [place] # (Auto) Eos # (Auto) Baso # (Auto) Absolute Nucleated RBC Nucleated RBC % Sodium Potassium Chloride Carbon Dioxide Anion Gap BUN Creatinine Estimated GFR (MDRD) Glucose Calcium Total Bilirubin AST ALT Alkaline Phosphatase B-Natriuretic Peptide Total Protein Albumin Globulin Albumin/Globulin Ratio Lipase Nasal Adenovirus (PCR) NOT DETECTED Nasal B. parapertussis DNA (PCR) NOT DETECTED Nasal Coronavir 229E PCR NOT DETECTED Nasal Coronavir HKU1 PCR NOT DETECTED Nasal Coronavir NL63 PCR NOT DETECTED Nasal Coronavir OC43 PCR NOT DETECTED Nasal Enterovir/Rhinovir PCR NOT DETECTED Nasal Influenza B PCR NOT DETECTED Nasal Influenza A PCR NOT DETECTED Nasal Parainfluen 1 PCR NOT DETECTED Nasal Parainfluen 2 PCR NOT DETECTED Nasal Parainfluen 3 PCR NOT DETECTED Nasal Parainfluen 4 PCR NOT DETECTED Nasal RSV (PCR) NOT DETECTED Nasal B.pertussis DNA PCR NOT DETECTED Nasal C.pneumoniae (PCR) NOT DETECTED Lex Human Metapneumo PCR NOT DETECTED Nasal M.pneumoniae (PCR) NOT DETECTED Nasal SARS-CoV-2 (PCR) NOT DETECTED - Rads (name of study) Chest x-ray Relevant Findings:: Final report received, EMP independent interpretation of test, Other (Left basilar patchy consolidation aspiration versus infection) CT angio chest Relevant Findings:: Final report received, EMP independent interpretation of test, Other (Multiple bilateral subcentimeter upper pulmonary nodules some calcified. ) PD Medical Decision Making - ED course ED course: 88-year-old female presents emergency department for ongoing shortness of breath and delayed recovery to pneumonia. Differentials include but are not limited to viral infection, pulmonary embolism, pneumonia, Tuberculosis. Had a very difficult time getting any information out of the patient and he might ask her question she would answer the question is something that was unrelated to the question. I also had a very difficult time engaging the patient's discharging find any additional information. Labs are complete she has no leukocytosis no significant anemia. CMP also complete no electrolyte abnormalities GFR is 43, BUN 13, creatinine 1.2. Respiratory swab negative. Initial chest x-ray showed some consolidation I decided to pursue a CT pulmonary embolism as patient recently flew and I cannot comfortably rule out pulmonary embolism. Angio chest CT does not reveal PE but does reveal multiple bilateral subcentimeter upper pulmonary nodules some which are calcified. I spoke with radiology in person who was able to look at patient's previous CT scans and does appear that these are chronic for the patient ruling out this being possibly related to tuberculosis. Pulmonary metastases cannot be excluded but does not appear that patient has ongoing symptoms of pneumonia. I considered admitting the patient but given that she has no white count she is afebrile she is hemodynamically stable and appears to look well I do not have any hospitalization criteria. I spoke with the patient's son Devyn who understands the discharge plan and says that he helps take care of his mother and father at home. Informed him that patient would greatly benefit from follow-up with primary care provider for further evaluation for possible lung cancer and stated understands this. Patient's son Devyn was told when to bring his mother back to the emergency department all questions have been answered at this point in time and believe that Mer is safe for discharge at this point in time. Departure - Departure Disposition: 01 Home, Self Care Clinical Impression: Lung nodule Condition: Good Instructions: ED Nodule Solitary Pulmonary Comments: Patient completed a CT scan that looks like there are some pulmonary nodules that are possibly calcified concerning for possible cancer. Please follow-up with your primary care provider for further evaluation of these at this point in time I do not see anything that requires hospitalization. Please come into the emergency department if your shortness of breath is getting any worse or if your dizziness is getting worse if you are starting develop any fevers or chills. Forms: PCP List Discharge Date/Time: 09/26/23 16:15
--- NOTE | 2023-09-26 15:18 | CT Report ---
PROCEDURE: Angio Chest INDICATIONS: SOA CONTRAST: Omnipaque 300 100ml TECHNIQUE: After the administration of intravenous contrast, 2 mm axial images were acquired from the pulmonary apices to the posterior costophrenic angles during the arterial phase. In addition, 1 mm lung kernel and 5 mm soft tissue kernel reconstructions were performed. 3-dimensional coronal oblique maximum int ensity projection (MIP) reformats, 8 mm axial MIP, and 5 mm coronal and sagittal MPR reformats were t hen performed through the thorax. For radiation dose reduction, the following was used: automated exp osure control, adjustment of mA and/or kV according to patient size. COMPARISON: None. FINDINGS: Image quality: Excellent. Large vessels: No filling defects within the opacified pulmonary arteries, accounting for motion and contrast timing. No evidence of acute aortic syndrome or aortic aneurysm. Lungs and pleura: Multiple nodular radiopacities are present bilaterally in the upper lungs. Some of these demonstrate spiculated margins. Some are partially calcified. The largest noncalcified left nod ule measures 6 mm in diameter (series 6/image 18). No pleural effusion or pneumothorax. Mediastinum: Heart size is normal. No pericardial effusion. No large vessel abnormality. No mediastin al adenopathy by size criteria. Chest wall and lower neck: Thyroid is unremarkable. No axillary or supraclavicular adenopathy by size . Bones: No aggressive osseous abnormality. Upper Abdomen: Unremarkable. IMPRESSION: No pulmonary embolus. Multiple bilateral subcentimeter upper pulmonary nodules, some of which are calcified suggesting gran ulomatous disease. No prior studies are available for comparison. Pulmonary metastases cannot be excl uded. Additionally, some of the airspace opacities are ill-defined which could be associated with asp iration or infection. Consider short interval follow-up to further characterize these findings and ev aluate for stability or resolution. Reviewed by: Devora Dorman MD on 09/26/2023 3:17 PM PDT Approved by: Devora Dorman MD on 09/26/2023 3:17 PM PDT Station ID: [id number]
[2023-09-26 15:22] LABS: B. PARAPERTUSSIS- RESP PCR PAN NOT DETECTED; B. PERTUSSIS- RESP PCR PANEL NOT DETECTED; C. PNEUMONIAE- RESP PCR PANEL NOT DETECTED; CORONAVIRUS 229E-RESP PCR NOT DETECTED; CORONAVIRUS HKU1-RESP PCR NOT DETECTED; CORONAVIRUS NL63-RESP PCR NOT DETECTED; CORONAVIRUS OC43-RESP PCR NOT DETECTED; HUMAN METAPNEUMOVIRUS NOT DETECTED; INFLUENZA A- RESP PCR PANEL NOT DETECTED; INFLUENZA B - RESP PCR PANEL NOT DETECTED; M. PNEUMONIAE- RESP PCR PANEL NOT DETECTED; PARAINFLUENZA VIRUS 1 NOT DETECTED; PARAINFLUENZA VIRUS 2 NOT DETECTED; PARAINFLUENZA VIRUS 3 NOT DETECTED; PARAINFLUENZA VIRUS 4 NOT DETECTED; RHINOVIRUS/ENTEROVIRUS NOT DETECTED; RSV- RESP PCR PANEL NOT DETECTED; SARS-CoV-2 -RESP PCR PANEL NOT DETECTED
[2023-09-26 16:02] VITALS: O2SAT 98
[2023-09-26] MEDS: iohexoL-300 100 ML VIAL IVP ONE (16:10)
[2023-09-26 16:22] VITALS: BP 142/84
== END 2023-09-26 16:15 | disposition home or self-care (01) ==
LOC: ED 13:00
DX: R91.1 Solitary pulmonary nodule (principal); F03.90 Unspecified dementia, unspecified severity, without behavioral disturbance, psychotic disturbance, mood disturbance, and anxiety; I10 Essential (primary) hypertension; E78.00 Pure hypercholesterolemia, unspecified; F17.200 Nicotine dependence, unspecified, uncomplicated; Z79.899 Other long term (current) drug therapy
CPT/HCPCS: 36415; 71045; 71275; 80053; 83690; 83880; 85025; 87633; 93005; 99284; Q9967

== ENCOUNTER → 2023-10-10 | Outpatient (CLI) | payer MEDICARE, OTHER | LOC: PC 08:00 | PROVIDERS: ATTEND Nurse Practitioner Gerontology | DX: Z51.5 Encounter for palliative care (principal); F01.54 Vascular dementia, unspecified severity, with anxiety; F01.518 Vascular dementia, unspecified severity, with other behavioral disturbance; Z91.83 Wandering in diseases classified elsewhere; F05 Delirium due to known physiological condition; F17.210 Nicotine dependence, cigarettes, uncomplicated; R91.8 Other nonspecific abnormal finding of lung field; K62.89 Other specified diseases of anus and rectum; N85.8 Other specified noninflammatory disorders of uterus; I10 Essential (primary) hypertension; R53.83 Other fatigue; R06.02 Shortness of breath; R63.0 Anorexia; R51.9 Headache, unspecified; K74.60 Unspecified cirrhosis of liver; G47.10 Hypersomnia, unspecified; K59.09 Other constipation; L21.9 Seborrheic dermatitis, unspecified; E43 Unspecified severe protein-calorie malnutrition; Z79.899 Other long term (current) drug therapy; Z86.79 Personal history of other diseases of the circulatory system; Z71.89 Other specified counseling; Z74.1 Need for assistance with personal care | CPT/HCPCS: 99345 ==

== ENCOUNTER 2023-10-23 08:00 | Outpatient (CLI) | payer MEDICARE, OTHER | END 2023-10-23 23:59 | disposition home or self-care (01) | LOC: PC 08:00 | PROVIDERS: ATTEND Nurse Practitioner Gerontology | DX: Z51.5 Encounter for palliative care (principal); F17.210 Nicotine dependence, cigarettes, uncomplicated; R91.8 Other nonspecific abnormal finding of lung field; J44.9 Chronic obstructive pulmonary disease, unspecified; R51.9 Headache, unspecified; K74.60 Unspecified cirrhosis of liver; F10.21 Alcohol dependence, in remission; F01.C4 Vascular dementia, severe, with anxiety; E43 Unspecified severe protein-calorie malnutrition; E78.5 Hyperlipidemia, unspecified; Z86.79 Personal history of other diseases of the circulatory system; I10 Essential (primary) hypertension; Z79.899 Other long term (current) drug therapy; R00.1 Bradycardia, unspecified; Z74.1 Need for assistance with personal care | CPT/HCPCS: 99349 ==

== ENCOUNTER 2023-12-07 19:05 | Emergency (ER) | payer MEDICARE, OTHER ==
--- NOTE | 2023-12-07 20:15 | ED Physician Documentation ---
PD HPI HEADACHE - Stated complaint Stated Complaint: HEAD PX/DIZZY - Chief complaint Chief Complaint: Neuro - History obtained from History obtained from: Patient - Additional information Additional information: 88-year-old woman with history of mild dementia, cerebral aneurysm about 4 years ago necessitating craniotomy presents accompanied by the for chief complaint of headache. It is unclear clinically if she is complaining of headache or pain from the skin on her head. She says it is really itchy and it looks like she has been prescribed clobetasol for this but she says it is not he lpful. She says it is all the time and when I ask her how long she has had it she says either months or years, she cannot really put a timeframe on it. She has not tried anything otherwise for the headache. She denies jaw claudication or visual symptoms. PD PAST MEDICAL HISTORY - Past Medical History Cardiovascular: Hypertension, High cholesterol Respiratory: None Neuro: Other Endocrine/Autoimmune: None GI: GERD, Hepatitis : None HEENT: Other Psych: None Musculoskeletal: None Derm: None - Past Surgical History Past Surgical History: Yes HEENT: Cataracts - Present Medications Home Medications: Ambulatory Orders Medication Instructions Recorded Confirmed Losartan Potassium 100 mg PO DAILY 09/25/15 07/27/20 hydroCHLOROthiazide 25 mg PO DAILY 09/25/15 07/27/20 [Hydrochlorothiazide] Meclizine HCl [Antivert] 12.5 - 25 mg PO Q6H PRN #30 tab 07/27/20 Metoprolol Tartrate [Lopressor] 1 tab PO DAILY 07/27/20 07/27/20 Doxepin [SINEquan] 25 mg PO QPM #20 12/07/23 - Allergies Allergies/Adverse Reactions: Allergies Allergy/AdvReac Type Severity Reaction Status Date / Time shellfish derived Allergy Anaphylaxis Verified 12/07/23 19:36 - Social History Does the pt smoke?: Yes Smoking Status: Current every day smoker Does the pt drink ETOH?: No Does the pt have substance abuse?: No - Immunizations Immunizations are current?: No Immunizations: TDAP >10years/unknown PD ED PE NORMAL - Vitals Vital signs reviewed: Yes - General General: Alert and oriented X 3, Other (She is a thin elderly woman in no obvious distress.) - HEENT HEENT: PERRL, EOMI - Neck Neck: Supple, no meningeal sign, No bony TTP - Cardiac Cardiac: RRR, No murmur - Respiratory Respiratory: No respiratory distress, Clear bilaterally - Abdomen Abdomen: Non tender - Derm Derm: Other (The skin of her scalp looks slightly inflamed. No specific temporal artery tenderness.) - Neuro Neuro: Alert and oriented X 3, Normal speech Eye Opening: Spontaneous Motor: Obeys Commands Verbal: Oriented GCS Score: 15 Results - Vitals Vitals: Vital Signs - 24 hr 12/07/23 12/07/23 12/07/23 19:29 19:35 20:28 Temperature 37.1 C Heart Rate 62 66 55 L Respiratory 20 16 Rate Blood Pressure 182/75 H 175/76 H O2 Saturation 100 100 Oxygen O2 Source Room air - EKG (time done) 1957 EKG releavant findings:: EKG personally interpreted by author of this note. Relevant findings are: Rate: Rate (enter#) (95) Rhythm: NSR Intervals: Normal OR. No: Prolonged QT QRS: Normal Ischemia: Normal ST segments Computer interpretation: Disagree with computer - Labs Labs: Laboratory Tests 12/07/23 12/07/23 12/07/23 20:27 20:27 20:27 WBC 4.7 L RBC 4.76 Hgb 11.8 L Hct 36.8 L MCV 77.3 L MCH 24.8 L MCHC 32.1 RDW 14.6 Plt Count 227 MPV 8.8 Neut # (Auto) 2.6 Lymph # (Auto) 1.3 L Walsh # (Auto) 0.5 Eos # (Auto) 0.3 Baso # (Auto) 0.1 Absolute Nucleated RBC 0.00 Nucleated RBC % 0.0 ESR 12 Sodium 137 Potassium 3.7 Chloride 102 Carbon Dioxide 31 Anion Gap 4.0 L BUN 14 Creatinine 1.2 Estimated GFR (MDRD) 43 L Glucose 99 Calcium 9.4 Total Bilirubin 0.9 AST 20 ALT 11 Alkaline Phosphatase 107 C-Reactive Protein < 0.5 Total Protein 6.6 Albumin 4.0 Globulin 2.6 Albumin/Globulin Ratio 1.5 - Rads (name of study) CT of the head showing stable postoperative changes without acute disease. Relevant Findings:: Final report received, EMP independent interpretation of test CT angiography of the head was negative for acute disease. Relevant Findings:: Final report received, EMP independent interpretation of test PD Medical Decision Making - ED course ED course: She presents with headache of unclear time course. It actually seems more like a scalp itchiness than anything else but given her advanced age and history of aneurysm had to consider recurrent aneurysm and giant cell arteritis. ESR and CRP were negative suggesting against GCA. CT angiography of the head was negative. She is feeling better after Benadryl. Departure - Departure Disposition: 01 Home, Self Care Clinical Impression: Scalp pruritus Headache Qualifiers: Headache type: unspecified Headache chronicity pattern: acute headache Intractability: not intractable Qualified Code(s): R51.9 - Headache, unspecified Condition: Good Record reviewed to determine appropriate education?: Yes Instructions: ED Cephalgia Unspecified Prescriptions: Doxepin [SINEquan] 25 mg PO QPM #20 Comments: Followup with your PCP Return if worse. Forms: PCP List
[2023-12-07 20:31] LABS: BASOPHILS # (AUTO) 0.1 10^3/uL (0.0-0.1); BASOPHILS % (AUTO) 1.3 %; EOSINOPHILS # (AUTO) 0.3 10^3/uL (0.0-0.7); EOSINOPHILS % (AUTO) 5.6 %; HCT - HEMATOCRIT 36.8 % (37.0-47.0); HGB - HEMOGLOBIN 11.8 g/dL (12.0-16.0); LYMPHOCYTES # (AUTO) 1.3 10^3/uL (1.5-3.5); LYMPHOCYTES % (AUTO) 27.1 %; MEAN CORPUSCULAR HEMOGLOBIN 24.8 pg (27.0-31.0); MEAN CORPUSCULAR HGB CONC 32.1 g/dL (32.0-36.0); MEAN CORPUSCULAR VOLUME 77.3 fL (81.0-99.0); MEAN PLATELET VOLUME 8.8 fL (7.9-10.8); MONOCYTES # (AUTO) 0.5 10^3/uL (0.0-1.0); MONOCYTES % (AUTO) 10.3 %; NEUTROPHILS # (AUTO) 2.6 10^3/uL (1.5-6.6); NEUTROPHILS % (AUTO) 55.5 %; PLT - PLATELET COUNT 227 10^3/uL (130-450); RED BLOOD COUNT 4.76 10^6/uL (4.20-5.40); RED CELL DISTRIBUTION WIDTH 14.6 % (12.0-15.0); WHITE BLOOD COUNT 4.7 x10^3/uL (4.8-10.8)
[2023-12-07 20:47] LABS: ALBUMIN/GLOBULIN RATIO 1.5 (1.0-2.2); ALKALINE PHOSPHATASE 107 IU/L (42-121); ALT ALANINE AMINOTRANSFERASE 11 IU/L (10-60); AST ASPARTATE AMINOTRANSFERASE 20 IU/L (10-42); BILIRUBIN,TOTAL 0.9 mg/dL (0.2-1.0); BUN - BLOOD UREA NITROGEN 14 mg/dL (6-20); CALCIUM 9.4 mg/dL (8.5-10.3); CARBON DIOXIDE - CO2 31 mmol/L (21-32); CHLORIDE 102 mmol/L (101-111); CREATININE 1.2 mg/dL (0.6-1.3); CRP - C-REACTIVE PROTEIN < 0.5 mg/dL (<0.5); GFR - MDRD 43 (>89); GLUCOSE 99 mg/dL (74-104); POTASSIUM 3.7 mmol/L (3.5-4.5); SODIUM 137 mmol/L (135-145); TOTAL PROTEIN 6.6 g/dL (6.4-8.9)
[2023-12-07] MEDS ORDERED: iohexoL-300 100 ML VIAL ONE (20:54)
[2023-12-07] MEDS: diphenhydrAMINE 25 MG CAPSULE PO STA (21:26)
[2023-12-07] MEDS: ACETAMINOPHEN 500 MG TABLET PO STA (21:26)
[2023-12-07] MEDS: iohexoL-300 100 ML VIAL IVP ONE (21:28)
[2023-12-07] MEDS: DOXEPIN 25 MG CAPSULE PO STA (21:30)
--- NOTE | 2023-12-07 21:47 | CT Report ---
PROCEDURE: Head WO INDICATIONS: headache, hx aneursym TECHNIQUE: Noncontrast 4.5 mm thick angled axial sections acquired from the foramen magnum to the vertex. For r adiation dose reduction, the following was used: automated exposure control, adjustment of mA and/or kV according to patient size. COMPARISON: 02/02/2022 FINDINGS: Image quality: Excellent. CSF spaces: Basal cisterns are patent. No extra-axial fluid collections. The ventricles are symmet mercedes in size and shape. Brain: Left MCA trifurcation aneurysm clip at anterior aspect of left sylvian fissure remains unchang ed. No intracranial bleeds or masses. Benign-appearing calcifications are noted in bilateral basal g anglia. There is cerebral volume loss for age, with resultant ventricular and sulcal prominence. The re are periventricular and deep white matter chronic small vessel ischemic changes. There is intracr anial internal carotid artery atherosclerosis. Skull and face: Postsurgical changes are again seen from left frontal temporal craniotomy unchanged f rom prior study. Sinuses: Visualized sinuses and mastoids are clear. IMPRESSION: 1. No acute intracranial abnormalities. 2. Stable postsurgical changes from prior left frontal craniotomy and aneurysm clipping. Reviewed by: Markie Davis MD on 12/07/2023 9:45 PM PDT Approved by: Markie Davis MD on 12/07/2023 9:45 PM PDT Station ID: [id number]
--- NOTE | 2023-12-07 21:56 | CT Report ---
PROCEDURE: CT Angio Head INDICATIONS: headache, hx aneursym CONTRAST: Omni 300. 80mls TECHNIQUE: After the administration of intravenous contrast, 1 mm thick sections acquired through the [place]. Postcontrast 4.5 mm thick sections then re-acquired from the foramen magnum to the vertex. 3-dimensional ottoutg-wbwjtjjow-weheozzvdn (MIP) and/or volume rendering reformats were acquired of [facility] central intracranial vasculature. For radiation dose reduction, the following was used: automate d exposure control, adjustment of mA and/or kV according to patient size. COMPARISON: CT head dated 02/02/2022, 07/27/2020. FINDINGS: Image quality: Diagnostic. Anterior circulation: Left MCA aneurysm clip is seen with significant beam hardening artifacts. Intr acranial internal carotid arteries are normal in size and flow. The flow within the paired anterior cerebral arteries is normal and symmetric. The flow within the middle cerebral arteries is normal an d symmetric. The anterior communicating artery is seen. No aneurysms are seen. Posterior circulation: Visualized portions of the vertebral arteries demonstrate normal caliber, and join to form a normal appearing basilar artery. Flow within the posterior cerebral arteries is norm al and symmetric. No aneurysms are seen. CSF spaces: Ventricles are normal in size and shape. Basal cisterns are patent. No extra-axial flu id collections. Brain: No midline shift. No intracranial bleeds or masses. Browning-white matter interface appears int act. Skull and face: Stable postsurgical changes in left frontal and temporal region are seen. Calvarium and facial bones appear intact, without suspicious lesions. Sinuses: Visualized sinuses and mastoids are clear. IMPRESSION: 1. No hemodynamically significant stenosis or aneurysm is seen. 2. Prior left frontal temporal craniotomy and aneurysm clip placement. No area of abnormal intracrani al enhancement. Reviewed by: Markie Dozier MD on 12/07/2023 9:55 PM PDT Approved by: Markie Dozier MD on 12/07/2023 9:55 PM PDT Station ID: [id number]
[2023-12-07 22:25] VITALS: BP 165/72; O2SAT 97
== END 2023-12-07 22:19 | disposition home or self-care (01) ==
LOC: ED 19:05
DX: R51.9 Headache, unspecified (principal); L29.8 Other pruritus; F17.200 Nicotine dependence, unspecified, uncomplicated
CPT/HCPCS: 36415; 70450; 70496; 80053; 85025; 85651; 86140; 93005; 99284; A9270; Q9967

== ENCOUNTER 2024-01-12 08:00 | Outpatient (CLI) | payer MEDICARE, OTHER | END 2024-01-12 23:59 | disposition home or self-care (01) | LOC: PC 08:00 | PROVIDERS: ATTEND Nurse Practitioner Gerontology | DX: Z51.5 Encounter for palliative care (principal); F01.C4 Vascular dementia, severe, with anxiety; F01.C11 Vascular dementia, severe, with agitation; R00.1 Bradycardia, unspecified; Z91.81 History of falling; E43 Unspecified severe protein-calorie malnutrition; R51.9 Headache, unspecified; R42 Dizziness and giddiness; I10 Essential (primary) hypertension; Z71.89 Other specified counseling; Z79.899 Other long term (current) drug therapy; T49.4X1A Poisoning by keratolytics, keratoplastics, and other hair treatment drugs and preparations, accidental (unintentional), initial encounter; T20.45XA Corrosion of unspecified degree of scalp [any part], initial encounter; T79.8XXA Other early complications of trauma, initial encounter; L29.9 Pruritus, unspecified | CPT/HCPCS: 99350 ==